=== PATIENT | male | born 1975 ===

== ENCOUNTER 2017-04-27 03:37 | Emergency (ER) | payer MEDICAID ==
[2017-04-27 03:55] VITALS: BMI 22.8
[2017-04-27 04:00] VITALS: BP 172/98; PULSE 103; RESP 16; TEMP 97.7; O2SAT 98
[2017-04-27] MEDS ORDERED: DiphenhydrAMINE 12.5 mg/5 ml LIQ UD (5 ml) PO STA (04:42)
[2017-04-27] MEDS ORDERED: DiphenhydrAMINE 12.5 mg/5 ml LIQ UD (5 ml) ONE (04:55)
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
== END 2017-04-27 04:58 | disposition home or self-care (01) ==
LOC: H.ER 03:37
DX: B02.9 Zoster without complications (principal); B20 Human immunodeficiency virus [HIV] disease; F17.200 Nicotine dependence, unspecified, uncomplicated